=== PATIENT | male | born 1985 | race Caucasian/White ===

== ENCOUNTER 2024-03-12 08:18 | Outpatient (CLI) | payer BC, SELFPAY ==
--- NOTE | ~2024-03-12 | XR_ITS ---
XR chest 2V Ordering provider: Musa Johnson MD History: 38 years Male with . Tobacco use . Comparison: May 09, 2008 FINDINGS: MEDIASTINUM: The cardiac silhouette is not enlarged. LUNGS: No infiltrates, effusions or pneumothorax. OTHER: No free air under the diaphragm. IMPRESSION: No acute cardiopulmonary pathology Reviewed, dictated and finalized at location A.
== END 2024-03-12 08:19 | disposition home or self-care (01) ==
LOC: GOSHIMG 08:20
PROVIDERS: PCP Emergency Medicine; Visit Provider Emergency Medicine
DX: Z72.0 Tobacco use (principal)
CPT/HCPCS: 71046

== ENCOUNTER 2024-03-13 08:43 | Outpatient (CLI) | payer BC, SELFPAY ==
--- NOTE | ~2024-03-13 | US_ITS ---
COMPLETE ABDOMINAL ULTRASOUND Ordering provider: Musa Johnson MD History: . Alcohol dependency . Comparison: None. FINDINGS: LIVER: Normal size and echotexture. Measures 15 cm. No focal hepatic lesions or perihepatic fluid col lections are identified. Portal vein flow is normal. GALLBLADDER: Gallbladder polyp is noted measuring 0.3 cm... No evidence for stones, sludge, gallbladd er wall thickening or pericholecystic fluid collections. A negative sonographic Acuña's sign was not ed. BILIARY DUCTS: No evidence for intra or extrahepatic biliary dilation. Common bile duct measures 4 mm in diameter which is within normal limits. PANCREAS: Normal echotexture and size. SPLEEN: Normal size, echotexture and contour and measures 10.9 cm in length. KIDNEYS: Right measures 11.8x 5.1x 4.6 cm in length and the left 11.9x 6x 5.5 cm in length. There is no evidence for hydronephrosis, solid renal mass, renal calculi or perinephric fluid collections. No renal cysts. UPPER ABDOMINAL AORTA: Normal in caliber. Aorta measures 1.9 CNM. IVC: Patent. FREE FLUID: None. IMPRESSION: 1. Polyp in the gallbladder. Otherwise unremarkable Complete ultrasound of the abdomen. Reviewed, dictated and finalized at location A.
== END 2024-03-13 08:44 | disposition home or self-care (01) ==
PROVIDERS: PCP Emergency Medicine; Visit Provider Emergency Medicine
DX: K82.4 Cholesterolosis of gallbladder (principal)
CPT/HCPCS: 76700